=== PATIENT | female | born 1990 | race African-American/Black ===

== ENCOUNTER 2021-06-16 10:45 | Inpatient (IN) | payer MEDICAID, OTHER ==
[~2021-06-16] VITALS: Ht 157.5 cm; Wt 61.8 kg
[2021-06-16] MEDS ORDERED: LORazepam 1 MG TABLET PO ONE (12:45)
[2021-06-16] MEDS ORDERED: QUEtiapine FUMARATE 100 MG TABLET PO PRN (13:00)
[2021-06-16 14:03] LABS: BASOPHILS % (AUTO) 0.7 % (0.0-2.0); EOSINOPHILS % (AUTO) 1.6 % (1.0-6.0); HEMATOCRIT 37.7 % (36-46); HEMOGLOBIN 12.6 g/dL (12.0-16.0); LYMPHOCYTES % (AUTO) 26.2 % (22.0-44.0); MEAN CORPUSCULAR HEMOGLOBIN 29.6 pg (26.0-34.0); MEAN CORPUSCULAR HGB CONC 33.5 G/dL (31.0-37.0); MEAN CORPUSCULAR VOLUME 88 fL (80-100); MONOCYTES # (AUTO) 0.7 K/uL (0.1-1.0); MONOCYTES % (AUTO) 9.3 % (2.0-9.0); NEUTROPHILS # (AUTO) 4.8 K/uL (1.8-7.7); NEUTROPHILS % (AUTO) 62.2 % (40.0-70.0); PLATELET COUNT (AUTO) 400 K/uL (150-450); RED BLOOD CELL COUNT(AUTO) 4.26 MIL/uL (4.00-5.20)
[2021-06-16 14:13] LABS: ANION GAP 8 mmol/L (8-16); CALCIUM, TOTAL 9.1 mg/dL (8.8-10.5); CARBON DIOXIDE 28 mmol/L (22-29); CHLORIDE 105 mmol/L (98-107); CREATININE 0.84 mg/dL (0.60-1.30); GLOMERULAR FILTR. RATE CALC > 60 mL/min (>60); GLUCOSE,RANDOM 114 mg/dL (70-110); POTASSIUM 3.2 mmol/L (3.5-5.1); SODIUM SERUM 141 mmol/L (136-145); UREA NITROGEN, BLOOD 8 mg/dL (7-18)
[2021-06-16 14:18] LABS: ALANINE AMINOTRANSFERASE 21 U/L (12-78); ALKALINE PHOSPHATASE 82 U/L (46-116); ASPARTATE AMINOTRANSFERASE 16 U/L (15-37); BILIRUBIN,TOTAL 0.7 mg/dL (0.1-1.0); TOTAL PROTEIN, SERUM 7.6 g/dL (6.4-8.2)
[2021-06-16 20:41] LABS: COVID AG,FIA SOURCE NASAL SWAB
[2021-06-16 22:28] VITALS: BP 126/77
[2021-06-16] MEDS ORDERED: POTASSIUM CHLORIDE 20 MEQ ER TABLET PO ONE (23:30)
[2021-06-17 00:46] VITALS: BP 120/71
[2021-06-17 02:26] VITALS: BP 122/74
[2021-06-17] MEDS: ZOLPIDEM TARTRATE 5 MG TABLET PO PRN (02:29)
[2021-06-17 08:18] VITALS: BP 115/60
[2021-06-17] MEDS: OLANZapine 5 MG TABLET PO SCH ×2 (11:05→17:00)
[2021-06-17] MEDS ORDERED: ONDANSETRON HCL 4 MG TABLET PO PRN (12:30)
[2021-06-17] MEDS ORDERED: CloNIDine HCL 0.1 MG TABLET PO PRN (12:45)
[2021-06-17] MEDS ORDERED: PETROLATUM,WHITE 28 GM JELLY TP PRN (12:45)
[2021-06-17] MEDS ORDERED: NICOTINE 14 MG/24 HOUR PATCH TD PRN (12:45)
[2021-06-17] MEDS ORDERED: ALBUTEROL SULFATE HFA 90 MCG/PUFF 8 GM INHALER IH PRN (12:45)
[2021-06-17] MEDS ORDERED: ACETAMINOPHEN 325 MG TABLET PO PRN (12:45)
[2021-06-17] MEDS ORDERED: DOCUSATE SODIUM 100 MG CAPSULE PO PRN (12:45)
[2021-06-17] MEDS ORDERED: MAGNESIUM HYDROXIDE SUSPENSION 30 ML UDCUP PO PRN (12:45)
[2021-06-17] MEDS ORDERED: GuaiFENesin/D-METHORPHAN [SUGAR-FREE] 200-20MG/10 ML SYRUP UDCUP PO PRN (12:45)
[2021-06-17] MEDS ORDERED: IBUPROFEN 400 MG TABLET PO PRN (12:45)
[2021-06-17] MEDS ORDERED: LOPERAMIDE HCL 2 MG CAPSULE PO PRN (12:45)
[2021-06-18 05:49] VITALS: BP 108/67
[2021-06-18] MEDS: OLANZapine 5 MG TABLET PO SCH ×2 (08:20→16:50)
[2021-06-18 08:24] VITALS: BP 118/68
[2021-06-18] MEDS: LORazepam 1 MG TABLET PO PRN (11:17)
[2021-06-18 16:41] VITALS: BP 125/60
[2021-06-18] MEDS: ONDANSETRON HCL 4 MG TABLET PO PRN (18:56)
[2021-06-19 01:44] VITALS: BP 118/62
[2021-06-19 08:28] VITALS: BP 123/73
[2021-06-19] MEDS: OLANZapine 5 MG TABLET PO SCH ×3 (08:36→16:41)
[2021-06-19 16:25] VITALS: BP 122/84
[2021-06-19] MEDS ORDERED: DiphenhydrAMINE HCL 50 MG/ML VIAL IM ONE (17:00)
[2021-06-19] MEDS ORDERED: LORazepam 2 MG/ML VIAL IM ONE (17:00)
[2021-06-19] MEDS ORDERED: HALOPERIDOL LACTATE 5 MG/ML VIAL IM ONE (17:00)
[2021-06-20] MEDS: OLANZapine 5 MG TABLET PO SCH ×2 (08:38→17:05)
[2021-06-20] MEDS: LORazepam 1 MG TABLET PO PRN ×2 (08:42→17:05)
[2021-06-20 16:28] VITALS: BP 96/62
[2021-06-21 00:44] VITALS: BP 102/67
[2021-06-21] MEDS: OLANZapine 5 MG TABLET PO SCH ×2 (08:14→16:14)
[2021-06-21] MEDS: LORazepam 1 MG TABLET PO PRN (10:36)
[2021-06-21] MEDS: NICOTINE POLACRILEX 2 MG LOZENGE PO PRN (10:36)
[2021-06-21 16:12] VITALS: BP 129/92
[2021-06-22] MEDS: LORazepam 1 MG TABLET PO PRN ×2 (08:11→16:23)
[2021-06-22] MEDS: OLANZapine 5 MG TABLET PO SCH ×2 (08:11→16:17)
[2021-06-22 16:05] VITALS: BP 101/60
[2021-06-22] MEDS: MAG HYDROX/AL HYDROX/SIMETH ES 30 ML SUSPENSION UDCUP PO PRN (17:00)
[2021-06-22] MEDS: ZOLPIDEM TARTRATE 5 MG TABLET PO PRN (21:27)
[2021-06-23 05:53] VITALS: BP 108/62
[2021-06-23 08:16] VITALS: BP 109/67
[2021-06-23] MEDS: OLANZapine 5 MG TABLET PO SCH ×2 (08:39→16:09)
[2021-06-23 16:09] VITALS: BP 107/71
[2021-06-23] MEDS: LORazepam 1 MG TABLET PO PRN (16:09)
[2021-06-23] MEDS: NICOTINE POLACRILEX 2 MG LOZENGE PO PRN (16:10)
[2021-06-24 05:28] VITALS: BP 107/58
[2021-06-24 07:19] LABS: AMPHET/METH SCREEN,URINE NEGATIVE (NEGATIVE); BARBITURATE SCREEN, URINE NEGATIVE (NEGATIVE); BENZODIAZEPINES SCREEN,URINE NEGATIVE (NEGATIVE); CANNABINOID SCREEN,URINE NEGATIVE (NEGATIVE); COCAINE SCREEN,URINE NEGATIVE (NEGATIVE); METHADONE SCREEN, URINE NEGATIVE (NEGATIVE); OPIATE SCREEN,URINE NEGATIVE (NEGATIVE)
[2021-06-24 07:21] LABS: PHENCYCLIDINE SCREEN,URINE NEGATIVE (NEGATIVE)
[2021-06-24 07:41] LABS: APPEARANCE,URINE CLEAR (CLEAR); BILIRUBIN,URINE NEGATIVE (NEGATIVE); GLUCOSE, URINE (UA) NEGATIVE (NEGATIVE); KETONES,URINE NEGATIVE (NEGATIVE); LEUKOCYTE ESTERASE ,URINE NEGATIVE (NEGATIVE); NITRATE,URINE NEGATIVE (NEGATIVE); OCCULT BLOOD,URINE NEGATIVE (NEGATIVE); PROTEIN,URINE NEGATIVE (NEGATIVE); SPECIFIC GRAVITIY, URINE 1.021 (1.003-1.030); UROBILINOGEN,URINE <=1.0 mg/dL (<=1.0)
[2021-06-24 08:16] VITALS: BP 112/73
[2021-06-24] MEDS: OLANZapine 5 MG TABLET PO SCH ×2 (08:28→16:47)
[2021-06-24] MEDS: LORazepam 1 MG TABLET PO PRN ×2 (08:28→14:20)
[2021-06-24 17:00] VITALS: BP 131/80
[2021-06-25 00:30] VITALS: BP 126/78
[2021-06-25] MEDS: ZOLPIDEM TARTRATE 5 MG TABLET PO PRN (00:38)
[2021-06-25] MEDS: ONDANSETRON HCL 4 MG TABLET PO PRN (00:38)
[2021-06-25] MEDS: LORazepam 1 MG TABLET PO PRN ×2 (08:07→19:15)
[2021-06-25] MEDS: OLANZapine 5 MG TABLET PO SCH ×2 (08:07→15:47)
[2021-06-25 08:28] VITALS: BP 131/75
[2021-06-25] MEDS: NICOTINE POLACRILEX 2 MG LOZENGE PO PRN (12:08)
[2021-06-25] MEDS: MAG HYDROX/AL HYDROX/SIMETH ES 30 ML SUSPENSION UDCUP PO PRN (15:54)
[2021-06-25 16:23] VITALS: BP 110/70
[2021-06-26 00:33] VITALS: BP 108/66
[2021-06-26 08:14] VITALS: BP 113/72
[2021-06-26] MEDS: OLANZapine 5 MG TABLET PO SCH (08:18)
[2021-06-26] MEDS: LORazepam 1 MG TABLET PO PRN (08:18)
[2021-06-26] MEDS ORDERED: OLAN5TAB52 PO (09:07)
== END 2021-06-26 12:50 | disposition home or self-care (01) | DRG 750 ==
LOC: EMS 10:45 → B2S 20:28 → B3A 21:00
PROVIDERS: ADMIT Psychiatry & Neurology Child & Adolescent Psychiatry; ATTEND Psychiatry & Neurology Child & Adolescent Psychiatry
DX: F20.0 Paranoid schizophrenia (principal); E11.9 Type 2 diabetes mellitus without complications; E87.6 Hypokalemia; F17.200 Nicotine dependence, unspecified, uncomplicated; Z91.14 Patient's other noncompliance with medication regimen; F41.9 Anxiety disorder, unspecified; R10.13 Epigastric pain; Z20.822 Contact with and (suspected) exposure to COVID-19; Z79.84 Long term (current) use of oral hypoglycemic drugs
CPT/HCPCS: 80053; 81003; 83036; 83690; 84132; 84703; 85025; 99285; G0480; J1200; J1630; J2060; Q0162; Q9967

== ENCOUNTER 2021-07-11 20:51 | Inpatient (IN) | payer MEDICAID, OTHER ==
[~2021-07-11] VITALS: Ht 157.5 cm; Wt 63.6 kg
[~2021-07-11 20:51] MED LIST: OLAN5TAB52 PO
[2021-07-12 04:42] LABS: BASOPHILS % (AUTO) 0.6 % (0.0-2.0); EOSINOPHILS % (AUTO) 1.7 % (1.0-6.0); HEMATOCRIT 39.1 % (36-46); HEMOGLOBIN 13.2 g/dL (12.0-16.0); LYMPHOCYTES # (AUTO) 1.9 K/uL (1.0-4.8); MEAN CORPUSCULAR HEMOGLOBIN 29.8 pg (26.0-34.0); MEAN CORPUSCULAR HGB CONC 33.8 G/dL (31.0-37.0); MEAN CORPUSCULAR VOLUME 88 fL (80-100); MONOCYTES # (AUTO) 0.7 K/uL (0.1-1.0); MONOCYTES % (AUTO) 11.7 % (2.0-9.0); NEUTROPHILS # (AUTO) 3.2 K/uL (1.8-7.7); PLATELET COUNT (AUTO) 441 K/uL (150-450); RED BLOOD CELL COUNT(AUTO) 4.43 MIL/uL (4.00-5.20); RED CELL DISTRIBUTION WIDTH 13.8 % (11.5-14.5)
[2021-07-12 04:50] LABS: ANION GAP 8 mmol/L (8-16); CALCIUM, TOTAL 8.9 mg/dL (8.8-10.5); CARBON DIOXIDE 30 mmol/L (22-29); CHLORIDE 104 mmol/L (98-107); CREATININE 0.96 mg/dL (0.60-1.30); GLOMERULAR FILTR. RATE CALC > 60 mL/min (>60); GLUCOSE,RANDOM 110 mg/dL (70-110); POTASSIUM 3.8 mmol/L (3.5-5.1); SODIUM SERUM 142 mmol/L (136-145); UREA NITROGEN, BLOOD 7 mg/dL (7-18)
[2021-07-12 04:55] LABS: ALANINE AMINOTRANSFERASE 21 U/L (12-78); ALBUMIN 3.6 g/dL (3.4-5.0); ALKALINE PHOSPHATASE 92 U/L (46-116); ASPARTATE AMINOTRANSFERASE 14 U/L (15-37); BILIRUBIN,TOTAL 0.3 mg/dL (0.1-1.0); TOTAL PROTEIN, SERUM 7.5 g/dL (6.4-8.2)
[2021-07-12 05:55] LABS: COVID AG,FIA SOURCE NASAL SWAB
[2021-07-12] MEDS: LORazepam 2 MG TABLET PO PRN (07:44)
[2021-07-12] MEDS: HALOPERIDOL 5 MG TABLET PO PRN (07:44)
[2021-07-12 08:05] VITALS: BP 128/84
[2021-07-12 08:18] VITALS: BP 128/84
[2021-07-12] MEDS: NICOTINE 14 MG/24 HOUR PATCH TD SCH (09:22)
[2021-07-12] MEDS ORDERED: ALBUTEROL SULFATE HFA 90 MCG/PUFF 8 GM INHALER IH PRN (09:30)
[2021-07-12] MEDS ORDERED: MAGNESIUM HYDROXIDE SUSPENSION 30 ML UDCUP PO PRN (09:30)
[2021-07-12] MEDS ORDERED: GuaiFENesin/D-METHORPHAN [SUGAR-FREE] 200-20MG/10 ML SYRUP UDCUP PO PRN (09:30)
[2021-07-12] MEDS ORDERED: ONDANSETRON HCL 4 MG TABLET PO PRN (09:30)
[2021-07-12] MEDS ORDERED: PETROLATUM,WHITE 28 GM JELLY TP PRN (09:30)
[2021-07-12] MEDS ORDERED: ACETAMINOPHEN 325 MG TABLET PO PRN (09:30)
[2021-07-12] MEDS ORDERED: LOPERAMIDE HCL 2 MG CAPSULE PO PRN (09:30)
[2021-07-12] MEDS ORDERED: CloNIDine HCL 0.1 MG TABLET PO PRN (09:30)
[2021-07-12] MEDS ORDERED: DOCUSATE SODIUM 100 MG CAPSULE PO PRN (09:30)
[2021-07-12] MEDS ORDERED: PNEUMOCOCCAL VACCINE POLYVALENT 0.5 ML VIAL [PPSV23] IM. ONE (10:45)
[2021-07-12] MEDS: SERTRALINE HCL 50 MG TABLET PO SCH (14:42)
[2021-07-12] MEDS: OLANZapine 5 MG TABLET PO SCH ×2 (14:43→20:08)
[2021-07-12 16:03] VITALS: BP 132/74
[2021-07-13] MEDS: OLANZapine 5 MG TABLET PO SCH ×2 (09:19→20:10)
[2021-07-13] MEDS: NICOTINE 14 MG/24 HOUR PATCH TD SCH (09:20)
[2021-07-13] MEDS: SERTRALINE HCL 50 MG TABLET PO SCH (09:20)
[2021-07-13 16:07] VITALS: BP 129/84
[2021-07-14 08:15] VITALS: BP 111/69
[2021-07-14] MEDS: OLANZapine 5 MG TABLET PO SCH ×2 (09:26→20:24)
[2021-07-14] MEDS: SERTRALINE HCL 50 MG TABLET PO SCH (09:26)
[2021-07-14] MEDS: NICOTINE 14 MG/24 HOUR PATCH TD SCH (09:26)
[2021-07-14 16:07] VITALS: BP 101/65
[2021-07-15] MEDS: SERTRALINE HCL 50 MG TABLET PO SCH (10:40)
[2021-07-15] MEDS: OLANZapine 5 MG TABLET PO SCH ×2 (10:40→20:13)
[2021-07-15] MEDS: NICOTINE 14 MG/24 HOUR PATCH TD SCH (10:44)
[2021-07-15 16:04] VITALS: BP 128/78
[2021-07-15 16:09] VITALS: BP 128/78
[2021-07-15] MEDS: ZOLPIDEM TARTRATE 10 MG TABLET PO PRN (21:33)
[2021-07-16 08:00] VITALS: BP 113/81
[2021-07-16] MEDS: SERTRALINE HCL 50 MG TABLET PO SCH (08:19)
[2021-07-16] MEDS: OLANZapine 5 MG TABLET PO SCH ×2 (08:19→20:37)
[2021-07-16] MEDS: NICOTINE 14 MG/24 HOUR PATCH TD SCH (08:19)
[2021-07-16 16:35] VITALS: BP 129/83
[2021-07-16] MEDS: LORazepam 2 MG TABLET PO PRN (18:57)
[2021-07-16] MEDS: HALOPERIDOL 5 MG TABLET PO PRN (18:57)
[2021-07-17 08:04] VITALS: BP 124/86
[2021-07-17] MEDS: SERTRALINE HCL 50 MG TABLET PO SCH (10:18)
[2021-07-17] MEDS: OLANZapine 5 MG TABLET PO SCH ×2 (10:18→20:34)
[2021-07-17] MEDS: NICOTINE 14 MG/24 HOUR PATCH TD SCH (10:18)
[2021-07-17] MEDS: LORazepam 2 MG TABLET PO PRN (16:45)
[2021-07-17] MEDS: HALOPERIDOL 5 MG TABLET PO PRN (16:45)
[2021-07-17] MEDS: MAG HYDROX/AL HYDROX/SIMETH ES 30 ML SUSPENSION UDCUP PO PRN (20:38)
[2021-07-18 08:01] VITALS: BP 129/85
[2021-07-18] MEDS: SERTRALINE HCL 50 MG TABLET PO SCH (09:07)
[2021-07-18] MEDS: OLANZapine 5 MG TABLET PO SCH ×2 (09:07→20:06)
[2021-07-18] MEDS: NICOTINE 14 MG/24 HOUR PATCH TD SCH (09:08)
[2021-07-18 16:04] VITALS: BP 134/76
[2021-07-19 06:48] LABS: COVID AG,FIA SOURCE NASAL SWAB
[2021-07-19 08:01] VITALS: BP 100/61
[2021-07-19] MEDS: OLANZapine 5 MG TABLET PO SCH ×2 (09:16→20:20)
[2021-07-19] MEDS: SERTRALINE HCL 50 MG TABLET PO SCH (09:16)
[2021-07-19] MEDS: NICOTINE 14 MG/24 HOUR PATCH TD SCH (09:17)
[2021-07-19 17:07] VITALS: BP 108/69
[2021-07-19] MEDS: MAG HYDROX/AL HYDROX/SIMETH ES 30 ML SUSPENSION UDCUP PO PRN (18:36)
[2021-07-19] MEDS: LORazepam 2 MG TABLET PO PRN (18:36)
[2021-07-20] MEDS: SERTRALINE HCL 50 MG TABLET PO SCH (08:36)
[2021-07-20] MEDS: OLANZapine 5 MG TABLET PO SCH ×2 (08:36→20:19)
[2021-07-20] MEDS: NICOTINE 14 MG/24 HOUR PATCH TD SCH (08:37)
[2021-07-20 08:56] VITALS: BP 104/74
[2021-07-20] MEDS: HALOPERIDOL 5 MG TABLET PO PRN ×2 (12:25→16:24)
[2021-07-20] MEDS: IBUPROFEN 400 MG TABLET PO PRN (12:25)
[2021-07-20] MEDS: LORazepam 2 MG TABLET PO PRN ×2 (12:25→16:24)
[2021-07-20] MEDS: MAG HYDROX/AL HYDROX/SIMETH ES 30 ML SUSPENSION UDCUP PO PRN (16:26)
[2021-07-21] MEDS: OLANZapine 5 MG TABLET PO SCH ×2 (09:15→20:16)
[2021-07-21] MEDS: NICOTINE 14 MG/24 HOUR PATCH TD SCH (09:15)
[2021-07-21] MEDS: SERTRALINE HCL 50 MG TABLET PO SCH (09:15)
[2021-07-21] MEDS ORDERED: SERT-439 PO (10:40)
[2021-07-21] MEDS ORDERED: OLAN5TAB52 PO (10:40)
[2021-07-21] MEDS: NICOTINE 21 MG/24 HOUR PATCH TD SCH (12:17)
[2021-07-21] MEDS: HALOPERIDOL 5 MG TABLET PO PRN (17:09)
[2021-07-21] MEDS: LORazepam 2 MG TABLET PO PRN (17:09)
[2021-07-21 18:54] VITALS: BP 108/70
[2021-07-21] MEDS: MAG HYDROX/AL HYDROX/SIMETH ES 30 ML SUSPENSION UDCUP PO PRN (18:57)
[2021-07-22] MEDS: SERTRALINE HCL 50 MG TABLET PO SCH ×2 (07:50→18:45)
[2021-07-22] MEDS: OLANZapine 5 MG TABLET PO SCH ×2 (07:50→20:02)
[2021-07-22] MEDS: NICOTINE 21 MG/24 HOUR PATCH TD SCH (07:51)
[2021-07-22 08:29] VITALS: BP 133/85
[2021-07-22] MEDS: MAG HYDROX/AL HYDROX/SIMETH ES 30 ML SUSPENSION UDCUP PO PRN (15:45)
[2021-07-22 16:10] VITALS: BP 111/71
[2021-07-22] MEDS: LORazepam 2 MG TABLET PO PRN (16:24)
[2021-07-23 08:06] VITALS: BP 96/58
[2021-07-23] MEDS: NICOTINE 21 MG/24 HOUR PATCH TD SCH (09:53)
[2021-07-23] MEDS: SERTRALINE HCL 50 MG TABLET PO SCH ×2 (09:53→16:29)
[2021-07-23] MEDS: OLANZapine 5 MG TABLET PO SCH ×2 (09:53→20:01)
[2021-07-23] MEDS: LORazepam 2 MG TABLET PO PRN ×2 (14:35→19:38)
[2021-07-23] MEDS: MAG HYDROX/AL HYDROX/SIMETH ES 30 ML SUSPENSION UDCUP PO PRN (16:10)
[2021-07-23 16:50] VITALS: BP 137/81
[2021-07-23] MEDS: ZOLPIDEM TARTRATE 10 MG TABLET PO PRN (20:01)
[2021-07-24 08:02] VITALS: BP 100/62
[2021-07-24] MEDS: NICOTINE 21 MG/24 HOUR PATCH TD SCH (08:13)
[2021-07-24] MEDS: SERTRALINE HCL 50 MG TABLET PO SCH ×2 (08:13→17:00)
[2021-07-24] MEDS: OLANZapine 5 MG TABLET PO SCH ×2 (08:13→20:15)
[2021-07-24] MEDS: LORazepam 2 MG TABLET PO PRN ×2 (08:13→16:09)
[2021-07-24] MEDS: IBUPROFEN 400 MG TABLET PO PRN (08:14)
[2021-07-24] MEDS: HALOPERIDOL 5 MG TABLET PO PRN (16:09)
[2021-07-24 16:30] VITALS: BP 104/69
[2021-07-24] MEDS: MAG HYDROX/AL HYDROX/SIMETH ES 30 ML SUSPENSION UDCUP PO PRN (16:30)
[2021-07-25 08:00] VITALS: BP 97/58
[2021-07-25] MEDS: SERTRALINE HCL 50 MG TABLET PO SCH ×2 (08:01→16:43)
[2021-07-25] MEDS: NICOTINE 21 MG/24 HOUR PATCH TD SCH (08:01)
[2021-07-25] MEDS: OLANZapine 5 MG TABLET PO SCH ×2 (08:01→20:49)
[2021-07-25] MEDS: LORazepam 2 MG TABLET PO PRN ×2 (09:04→14:12)
[2021-07-25 10:00] VITALS: BP 116/62
[2021-07-25] MEDS: HALOPERIDOL 5 MG TABLET PO PRN (14:12)
[2021-07-25 16:28] VITALS: BP 119/78
[2021-07-25] MEDS: NICOTINE 14 MG/24 HOUR PATCH TD PRN (16:52)
[2021-07-26 08:02] VITALS: BP 128/89
[2021-07-26] MEDS: SERTRALINE HCL 50 MG TABLET PO SCH ×2 (09:40→16:17)
[2021-07-26] MEDS: NICOTINE 21 MG/24 HOUR PATCH TD SCH (09:40)
[2021-07-26] MEDS: OLANZapine 5 MG TABLET PO SCH ×2 (09:45→20:18)
[2021-07-26] MEDS: LORazepam 2 MG TABLET PO PRN ×4 (09:47→18:45)
[2021-07-26 16:06] VITALS: BP 116/73
[2021-07-26] MEDS: HALOPERIDOL 5 MG TABLET PO PRN (16:17)
[2021-07-26] MEDS: MAG HYDROX/AL HYDROX/SIMETH ES 30 ML SUSPENSION UDCUP PO PRN (18:00)
[2021-07-26] MEDS: ZOLPIDEM TARTRATE 10 MG TABLET PO PRN (20:28)
[2021-07-27 08:15] VITALS: BP 106/66
[2021-07-27] MEDS: LORazepam 2 MG TABLET PO PRN ×3 (08:16→18:30)
[2021-07-27] MEDS: HALOPERIDOL 5 MG TABLET PO PRN ×3 (08:16→18:30)
[2021-07-27] MEDS: SERTRALINE HCL 50 MG TABLET PO SCH ×2 (08:17→16:48)
[2021-07-27] MEDS: OLANZapine 5 MG TABLET PO SCH ×2 (08:17→20:00)
[2021-07-27] MEDS: NICOTINE 21 MG/24 HOUR PATCH TD SCH (08:22)
[2021-07-27 15:55] LABS: COVID AG,FIA SOURCE NASOPHARYNGEAL
[2021-07-27 16:30] VITALS: BP 104/57
[2021-07-27] MEDS: ZOLPIDEM TARTRATE 10 MG TABLET PO PRN (20:20)
[2021-07-28 08:01] VITALS: BP 99/57
[2021-07-28] MEDS: HALOPERIDOL 5 MG TABLET PO PRN ×3 (08:35→18:00)
[2021-07-28] MEDS: SERTRALINE HCL 50 MG TABLET PO SCH ×2 (08:35→16:26)
[2021-07-28] MEDS: LORazepam 2 MG TABLET PO PRN ×3 (08:35→18:00)
[2021-07-28] MEDS: OLANZapine 5 MG TABLET PO SCH ×2 (08:35→20:00)
[2021-07-28] MEDS: NICOTINE 21 MG/24 HOUR PATCH TD SCH (08:40)
[2021-07-28 16:52] VITALS: BP 104/65
[2021-07-28] MEDS: ZOLPIDEM TARTRATE 10 MG TABLET PO PRN (20:14)
[2021-07-29] MEDS: LORazepam 2 MG TABLET PO PRN (08:41)
[2021-07-29] MEDS: SERTRALINE HCL 50 MG TABLET PO SCH (08:41)
[2021-07-29] MEDS: OLANZapine 5 MG TABLET PO SCH (08:41)
[2021-07-29 08:42] VITALS: BP 117/68
[2021-07-29] MEDS: NICOTINE 14 MG/24 HOUR PATCH TD PRN ×2 (08:46→08:47)
[2021-07-29] MEDS: NICOTINE 21 MG/24 HOUR PATCH TD SCH (08:51)
[2021-07-29] MEDS ORDERED: SERT-439 PO (12:34)
== END 2021-07-29 15:40 | disposition home or self-care (01) | DRG 750 ==
LOC: EMS 22:07 → 3EC 07-12 02:11
PROVIDERS: ADMIT Psychiatry & Neurology Child & Adolescent Psychiatry; ATTEND Psychiatry & Neurology Child & Adolescent Psychiatry
DX: F20.0 Paranoid schizophrenia (principal); R45.851 Suicidal ideations; E11.9 Type 2 diabetes mellitus without complications; F17.210 Nicotine dependence, cigarettes, uncomplicated; G47.00 Insomnia, unspecified; G44.209 Tension-type headache, unspecified, not intractable; Z20.822 Contact with and (suspected) exposure to COVID-19; F15.10 Other stimulant abuse, uncomplicated; Z59.00 Homelessness unspecified; Z79.84 Long term (current) use of oral hypoglycemic drugs
CPT/HCPCS: 80053; 83036; 84703; 85025; 87081; 99285; G0480; J3535; Q0162

== ENCOUNTER 2022-02-03 17:58 | Emergency (ER) | payer MEDICAID, OTHER ==
[~2022-02-03] VITALS: Ht 165.1 cm; Wt 52.3 kg
[~2022-02-03 17:58] MED LIST changes: +SERT-439 PO
[2022-02-03 18:36] VITALS: BP 134/80
== END 2022-02-04 01:40 | disposition left against medical advice (07) ==
LOC: EMS 18:22
DX: R51.9 Headache, unspecified (principal); M54.9 Dorsalgia, unspecified; J00 Acute nasopharyngitis [common cold]; Z53.21 Procedure and treatment not carried out due to patient leaving prior to being seen by health care provider